=== PATIENT | female | born 1990 | race Two or more races ===

== ENCOUNTER → 2020-08-11 09:52 | Outpatient (BNVA) | payer OTHER, SELFPAY | PROVIDERS: PCP Internal Medicine Nephrology; Visit Provider Physician Assistant | DX: Z76.89 Persons encountering health services in other specified circumstances (principal) ==

== ENCOUNTER 2020-08-22 09:52 | Outpatient (REF) | payer OTHER, SELFPAY | END 2020-08-22 09:53 | disposition home or self-care (01) | LOC: HO.LAB 09:52 | PROVIDERS: Visit Provider Internal Medicine | DX: Z20.828 Contact with and (suspected) exposure to other viral communicable diseases (principal) | CPT/HCPCS: C9803; U0003 ==

== ENCOUNTER → 2020-08-24 08:32 | Outpatient (BNVA) | payer OTHER, SELFPAY | PROVIDERS: Visit Provider Surgery | DX: Z76.89 Persons encountering health services in other specified circumstances (principal) ==

== ENCOUNTER 2020-09-15 07:34 | Outpatient (REF) | payer OTHER, SELFPAY ==
--- NOTE | 2020-09-15 07:52 | XR_ITS ---
EXAMINATION: XR CHEST CLINICAL INFORMATION: Morbid obesity. COMPARISON: None TECHNIQUE: 2 views of the chest were obtained. FINDINGS: No significant abnormality is noted involving the heart, lungs, mediastinum, bony thorax or soft tissues. XR/XR chest 2V IMPRESSION: Unremarkable chest exam.
--- NOTE | 2020-09-15 07:52 | FL_ITS ---
EXAMINATION: FL UPPER GI SERIES CLINICAL INFORMATION: Bariatric service evaluation. E66.01 COMPARISON: None TECHNIQUE: Upper GI series is performed using fluoroscopic evaluation in addition to multiple fluoroscopic spot views. The patient is imaged both upright and prone and using both thick and thin barium sulfate along with effervescent granules. Exam is technically challenging, difficulty breath-holding. Fluoroscopy time: 1.5 minutes DAP: 29.53 Gycm2 Fluoroscopic spot images: 17 FINDINGS: There is scattered motion artifact on the images. There is normal esophageal motility. There is no obstruction, stricture, ulceration, or hernia. No gastroesophageal reflux is demonstrated. The stomach shows no thickened folds or ulcer crater or outlet obstruction. The duodenal bulb is pliable and without ulcer crater or scarring. The post bulbar duodenum the jejunal mucosal pattern are unremarkable. FL/FL upper GI series IMPRESSION: Normal study.
--- NOTE | 2020-09-15 07:52 | US_ITS ---
EXAMINATION: US COMPLETE ABDOMEN WITH LIVER ELASTOGRAPHY CLINICAL INFORMATION: Morbid obesity. COMPARISON: None. TECHNIQUE: Real-time imaging of the abdominal viscera. Noninvasive ultrasound liver fibrosis assessment is performed using Jamal ElastPQ point quantification shear wave elastography (pSWE) with a 5 MHz transducer. Multiple elastography samples are obtained. FINDINGS: PANCREAS: The pancreas is obscured by overlying gas. ABDOMINAL AORTA: The proximal, middle, and distal aortic segments are normal in caliber. INFERIOR VENA CAVA: Visualized portions are normal. LIVER: The liver demonstrates normal size, contour and diffuse increased echogenicity. No focal lesion or intrahepatic biliary duct dilatation. The right lobe measures 18.2 cm in length. The left lobe measures 12.6 cm in length. There is normal hepatopedal flow seen in the portal vein. Shear wave elastography provides a median stiffness of 1.16 m/s (reference: normal median stiffness is 0.81 - 1.22 m/s). The IQR/median stiffness to assess sampling precision is 0.17 (reference: optimal IQR/median stiffness is under 0.3). GALLBLADDER: There are multiple echogenic stones with acoustic shadowing. There is no gallbladder wall thickening or pericholecystic fluid collection. COMMON BILE DUCT: Normal in caliber measuring 0.7 cm in diameter. RIGHT KIDNEY: Normal. No hydronephrosis. No renal calculi or focal parenchymal lesions. The kidney measures 10.8 cm in maximum dimension. LEFT KIDNEY: Normal. No hydronephrosis. No renal calculi or focal parenchymal lesions. The kidney measures 10.6 cm in maximum dimension. SPLEEN: Normal. The spleen measures 11.8 cm in maximum dimension. FREE FLUID: None. US/US abdomen comp w elastography IMPRESSION: 1. Cholelithiasis without wall thickening. 2. Diffusely mild echogenic liver without focal lesion. 3. The rest of the abdominal ultrasound is unremarkable. 4. Elastography: Liver elastography measurements are within normal (METAVIR Stage F0).
--- NOTE | 2020-09-15 09:40 | ECG_ITS ---
Test Reason : SOB Blood Pressure : / mmHG Vent. Rate : 088 BPM Atrial Rate : 088 BPM P-R Int : 136 ms QRS Dur : 078 ms QT Int : 380 ms P-R-T Axes : 037 014 012 degrees QTc Int : 459 ms Normal sinus rhythm Normal ECG No previous ECGs available Referred By: Esequiel Guaman Electronically Signed By:Luis Mireles
[2020-09-15 10:11] LABS: MANUAL DIFF FLAG NO
[2020-09-15 10:19] LABS: Basophils Percent Auto 0.2 % (0-2); Eosinophils Absolute Auto 0.2 X10*3/uL (0.0-0.4); Eosinophils Percent Auto 2.1 % (0-4); Hematocrit 38.6 % (37-47); Hemoglobin 12.3 g/dl (12.0-16.0); Imm Gran Abs Auto 0.02 X10*3/uL (0.00-0.03); Imm Gran Pct Auto 0.2 % (0.0-0.4); Lymphocytes Absolute Auto 2.5 X10*3/uL (1.2-4.9); Lymphocytes Percent Auto 21.9 % (20-40); Mean Corpuscular HGB Conc 31.9 g/dl (31.0-35.0); Mean Corpuscular Hemoglobin 27.9 pg (27.0-33.0); Mean Corpuscular Volume 87.5 fL (80-98); Mean Platelet Volume 10.2 fL (9.4-12.3); Monocytes Absolute Auto 0.8 X10*3/uL (0.1-1.2); Neutrophils Absolute Auto 7.7 X10*3/uL (2.0-8.3); Neutrophils Percent Auto 68.6 % (45-73); Platelet Count 287 X10*3/uL (160-400); Red Blood Count 4.41 X10*6/uL (4.20-5.50); Red Cell Distribution Width 14.1 % (11.0-16.0); White Blood Count 11.2 X10*3/uL (4.8-10.8)
[2020-09-15 10:34] LABS: Estimated Average Glucose 111 mg/dL; Hemoglobin A1c % 5.5 %
[2020-09-15 10:43] LABS: Alanine Aminotransferase 17 U/L (0-31); Albumin Level 4.2 g/dL (3.5-5.0); Alkaline Phosphatase 82 U/L (39-117); Anion Gap 11 (12-20); Aspartate Amino Transferase 17 U/L (5-31); Bilirubin Total 1.3 mg/dL (0.0-1.0); Blood Urea Nitrogen 12 mg/dL (9-16); C Reactive Protein 1.08 mg/dL (< or = 0.50); Calcium 9.3 mg/dL (8.4-10.2); Carbon Dioxide 27 mmol/L (22-29); Chloride 105 mmol/L (96-108); Cholesterol 147 mg/dL; Estimated Glomerular Filt Rate > 60; Glucose Random 108 mg/dL (60-115); HDL Cholesterol 49 mg/dL; LDL Cholesterol Calculated 83 mg/dl; Potassium 4.4 mmol/l (3.3-5.1); Sodium 139 mmol/L (135-145); Triglycerides 78 mg/dL
[2020-09-15 11:06] LABS: Ferritin 29 ng/mL (10-122); TSH reflex Free T4 1.56 mIU/mL (0.32-4.0); Vitamin D 25-OH Total 15.2 ng/mL (>30)
[2020-09-15 11:16] LABS: Folate 10.2 ng/mL (> or = 4.0); Vitamin B12 198 pg/mL (200-900)
[2020-09-16 12:26] LABS: Insulin Level Total 13.1 uIU/mL
[2020-09-16 18:47] LABS: Calcium (PTHI) 9.3 mg/dL (8.6-10.2); PTHI 42 pg/mL (14-64)
[2020-09-18 02:17] LABS: Zinc 69 mcg/dL (60-130)
[2020-09-19 14:27] LABS: Vitamin B1 13 nmol/L (8-30)
[2020-09-22 13:47] LABS: Vitamin A 38 mcg/dL (38-98)
== END 2020-09-15 07:35 | disposition home or self-care (01) ==
LOC: HO.US 07:34
PROVIDERS: Visit Provider Surgery
DX: Z01.818 Encounter for other preprocedural examination (principal); E66.01 Morbid (severe) obesity due to excess calories; K21.9 Gastro-esophageal reflux disease without esophagitis
CPT/HCPCS: 36415; 71046; 74240; 76705; 76981; 80053; 80061; 82306; 82607; 82728; 82746; 83036; 83525; 83970; 84425; 84443; 84590; 84630; 85025; 86140; 93005

== ENCOUNTER 2020-09-16 08:10 | Outpatient (REF) | payer OTHER, SELFPAY ==
[2020-09-17 14:17] LABS: H Pylori Breath Test NOT DETECTED (NOT DETECTED)
== END 2020-09-16 08:11 | disposition home or self-care (01) ==
LOC: HO.LNP 08:10
PROVIDERS: PCP Internal Medicine; Referring Provider Surgery; Visit Provider Dietitian, Registered
DX: E66.01 Morbid (severe) obesity due to excess calories (principal); Z11.0 Encounter for screening for intestinal infectious diseases
CPT/HCPCS: 83013; 99211

== ENCOUNTER → 2020-09-21 08:24 | Outpatient (BNVA) | payer OTHER, SELFPAY | PROVIDERS: PCP Internal Medicine; Visit Provider Surgery | DX: Z76.89 Persons encountering health services in other specified circumstances (principal) ==

== ENCOUNTER 2020-10-11 10:44 | Day surgery (SDC) | payer OTHER, SELFPAY ==
[2020-08-29 14:13] VITALS: BMI 55.9
[2020-10-05 16:34] VITALS: BMI 55.3
--- NOTE | 2020-10-10 11:03 | HO.ANESPROP2 ---
Documented by User: Yaneli Gloria 10/10/20 11:04 HPI - Anesthesia Eval Consult details Narrative: 30yo F for Upper Endoscopy [facility] Past Medical History Medical History Anxiety Back pain Depression Lab test positive for detection of COVID-19 virus Morbid obesity Nexplanon in place Family History Family History Mother Hypertension Osteoporosis Asthma Diabetes Father Diabetes Sister No problems noted. Sister No problems noted. Brother No problems noted. Daughter No problems noted. Daughter No problems noted. Surgical History Surgical History History of sleeve gastrectomy Hx of section Hx of hernia repair Social History Social History Alcohol intake: current Alcohol intake frequency: holidays/special occasions only Smoking Status: Never smoker Use of substances other than those prescribed or required for medical reasons: Yes Substance Use Type: Marijuana Substance Use Frequency: Occasionally Advance Directives: No (unknown) Advance Directives Information Provided: No Advance Directives on File: No ([place]) Recently lost weight without trying: No Meds Allergies Allergy/AdvReac Type Severity Reaction Status Date / Time aspirin Allergy Severe Swelling Verified 10/05/20 16:32 Home Medications Medication Instructions Recorded Confirmed Type acetaminophen 325 mg tablet 325 mg PO QID PRN 08/24/20 08/29/20 History Exam Exam Date and Time: October 10, 2020 1103 Height,Weight and Vital Signs: Height 5 ft 1 in Weight 132.903 kg Assessment and Plan Assessment Anesthesia Assessment: Chart Reviewed Documented by User: Lisbeth Torres 10/11/20 12:28 [facility] Past Medical History Medical History Anxiety Back pain Depression Lab test positive for detection of COVID-19 virus Morbid obesity Nexplanon in place Family History Family History Mother Hypertension Osteoporosis Asthma Diabetes Father Diabetes Sister No problems noted. Sister No problems noted. Brother No problems noted. Daughter No problems noted. Daughter No problems noted. Surgical History Surgical History History of sleeve gastrectomy Hx of section Hx of hernia repair Social History Social History Alcohol intake: current Alcohol intake frequency: holidays/special occasions only Smoking Status: Never smoker Use of substances other than those prescribed or required for medical reasons: Yes Substance Use Type: Marijuana Substance Use Frequency: Occasionally Advance Directives: No (unknown) Advance Directives Information Provided: No Advance Directives on File: No ([place]) Recently lost weight without trying: No Meds Allergies Allergy/AdvReac Type Severity Reaction Status Date / Time aspirin Allergy Severe Swelling Verified 10/05/20 16:32 Home Medications Medication Instructions Recorded Confirmed Type acetaminophen 325 mg tablet 325 mg PO QID PRN 08/24/20 08/29/20 History Exam Airway Mallampati Class: II TM Dist: >3cm Neck ROM: Full Assessment and Plan Final Anesthetic Review NPO: Yes ASA Class: III Final Preanesthetic Review: No Changes in Pt Med Stat and Consent Obtained/Reviewed Patient Risk: Intermediate Procedure Risk: Low Assessment/Block/Sedation in SS: Assess/Block/Sedation-SS Anesthetic Plan Anesthetic Plan: MAC: Disposition: Standard PACU
[2020-10-11 11:54] VITALS: BP 123/87; PULSE 105; RESP 16; TEMP 36.5; O2SAT 98
[2020-10-11 11:58] LABS: UPreg QC Valid YES; Urine Pregnancy NEGATIVE (NEGATIVE)
[2020-10-11] MEDS: Lactated Ringers 1,000 ML 100 ML IVCONT (12:13)
--- NOTE | 2020-10-11 12:43 | P.CONAN_ITS ---
[facility] Past Medical History Medical History Anxiety Back pain Depression Lab test positive for detection of COVID-19 virus Morbid obesity Nexplanon in place Family History Family History Mother Hypertension Osteoporosis Asthma Diabetes Father Diabetes Sister No problems noted. Sister No problems noted. Brother No problems noted. Daughter No problems noted. Daughter No problems noted. Surgical History Surgical History History of sleeve gastrectomy Hx of section Hx of hernia repair Social History Social History Alcohol intake: current Alcohol intake frequency: holidays/special occasions only Smoking Status: Never smoker Use of substances other than those prescribed or required for medical reasons: Yes Substance Use Type: Marijuana Substance Use Frequency: Occasionally Advance Directives: No (unknown) Advance Directives Information Provided: No Advance Directives on File: No ([place]) Recently lost weight without trying: No Meds Allergies Allergy/AdvReac Type Severity Reaction Status Date / Time aspirin Allergy Severe Swelling Verified 10/05/20 16:32 Home Medications Medication Instructions Recorded Confirmed Type acetaminophen 325 mg tablet 325 mg PO QID PRN 08/24/20 08/29/20 History Exam Exam Date and Time: October 11, 2020 1244 Height,Weight and Vital Signs: Height 5 ft 1 in Weight 132.903 kg Last Vital Signs Temp 97.7 F 10/11/20 11:54 Pulse 105 H 10/11/20 11:54 Resp 16 10/11/20 11:54 BP 123/87 10/11/20 11:54 Pulse Ox 98 10/11/20 11:54 Pertinent Lab Results Pertinent Lab Results: Laboratory Tests 10/11/20 11:39 Urine Test NEGATIVE Airway Mallampati Class: II TM Dist: >3cm Neck ROM: Full Assessment and Plan Assessment Anesthesia Assessment: Anesthesia Plan Discussed and Chart Reviewed Final Anesthetic Review NPO: Yes ASA Class: III Final Preanesthetic Review: No Changes in Pt Med Stat, Meds/Allgs Chart Reviewed, Consent Obtained/Reviewed and Anes Risks/Benef Reviewed Patient Risk: Intermediate Procedure Risk: Low Assessment/Block/Sedation in SS: Assess/Block/Sedation-SS Anesthetic Plan Anesthetic Plan: MAC: Disposition: Standard PACU
--- NOTE | 2020-10-11 12:44 | P.HPSUR_ITS ---
Pre-Procedural Eval Section A The patient is an INPATIENT: No The History & Physical has been completed within 30 days and I have reviewed it.: Yes Section B Chief Complaint: reflux Details of Present Illness: GERD Relevant Family History (Specify if Yes): No Relevant Social History: None Present Medications: see Short Stay Collaborative assessment Medical History: No relevant PMH History of Previous Operations: Relevant previous surgery/procedure and date(s) (Sleeve gastrectomy) Allergies: Allergies Allergy/AdvReac Type Severity Reaction Status Date / Time aspirin Allergy Severe Swelling Verified 10/05/20 16:32 Review of Systems Sugical H&P ROS: Negative: Constitution, Cardiovascular, Respiratory, Neurological, Psychiatric, Hem-Onc, Allergic/Immunologic, Gastrointestinal, Kyung tourinary, Musculoskeletal, Integumentary, Endocrine and Eyes/Ears/Nose/Throat Exam Surgical H&P Exam: Normal: HEENT, Normal: Heart, Normal: Lungs, Normal: Extremities, Normal: Abdomen, Normal: Skin and Normal: Neurological Plan Diagnosis/Plan: Unchanged I have reviewed the history and physical and performed a pertinent physical examination on my patient. No changes have occurred unless specified.
--- NOTE | 2020-10-11 12:45 | HO.ANESPROP2 ---
[facility] Past Medical History Medical History Anxiety Back pain Depression Lab test positive for detection of COVID-19 virus Morbid obesity Nexplanon in place Family History Family History Mother Hypertension Osteoporosis Asthma Diabetes Father Diabetes Sister No problems noted. Sister No problems noted. Brother No problems noted. Daughter No problems noted. Daughter No problems noted. Surgical History Surgical History History of sleeve gastrectomy Hx of section Hx of hernia repair Social History Social History Alcohol intake: current Alcohol intake frequency: holidays/special occasions only Smoking Status: Never smoker Use of substances other than those prescribed or required for medical reasons: Yes Substance Use Type: Marijuana Substance Use Frequency: Occasionally Advance Directives: No (unknown) Advance Directives Information Provided: No Advance Directives on File: No ([place]) Recently lost weight without trying: No Meds Allergies Allergy/AdvReac Type Severity Reaction Status Date / Time aspirin Allergy Severe Swelling Verified 10/05/20 16:32 Home Medications Medication Instructions Recorded Confirmed Type acetaminophen 325 mg tablet 325 mg PO QID PRN 08/24/20 08/29/20 History Exam Exam Date and Time: October 11, 2020 1245 Height,Weight and Vital Signs: Height 5 ft 1 in Weight 132.903 kg Last Vital Signs Temp 97.7 F 10/11/20 11:54 Pulse 105 H 10/11/20 11:54 Resp 16 10/11/20 11:54 BP 123/87 10/11/20 11:54 Pulse Ox 98 10/11/20 11:54 Pertinent Lab Results Pertinent Lab Results: Laboratory Tests 10/11/20 11:39 Urine Test NEGATIVE Airway Mallampati Class: II TM Dist: >3cm Neck ROM: Full Assessment and Plan Assessment Anesthesia Assessment: Anesthesia Plan Discussed and Chart Reviewed Final Anesthetic Review NPO: Yes ASA Class: III Final Preanesthetic Review: No Changes in Pt Med Stat, Meds/Allgs Chart Reviewed, Consent Obtained/Reviewed and Anes Risks/Benef Reviewed Patient Risk: Intermediate Procedure Risk: Low Assessment/Block/Sedation in SS: Assess/Block/Sedation-SS Anesthetic Plan Anesthetic Plan: MAC: Disposition: Standard PACU
--- NOTE | 2020-10-11 12:46 | HO.ANESPROP2 ---
[facility] Past Medical History Medical History Anxiety Back pain Depression Lab test positive for detection of COVID-19 virus Morbid obesity Nexplanon in place Family History Family History Mother Hypertension Osteoporosis Asthma Diabetes Father Diabetes Sister No problems noted. Sister No problems noted. Brother No problems noted. Daughter No problems noted. Daughter No problems noted. Surgical History Surgical History History of sleeve gastrectomy Hx of section Hx of hernia repair Social History Social History Alcohol intake: current Alcohol intake frequency: holidays/special occasions only Smoking Status: Never smoker Use of substances other than those prescribed or required for medical reasons: Yes Substance Use Type: Marijuana Substance Use Frequency: Occasionally Advance Directives: No (unknown) Advance Directives Information Provided: No Advance Directives on File: No ([place]) Recently lost weight without trying: No Meds Allergies Allergy/AdvReac Type Severity Reaction Status Date / Time aspirin Allergy Severe Swelling Verified 10/05/20 16:32 Home Medications Medication Instructions Recorded Confirmed Type acetaminophen 325 mg tablet 325 mg PO QID PRN 08/24/20 08/29/20 History Exam Exam Date and Time: October 11, 2020 1246 Height,Weight and Vital Signs: Height 5 ft 1 in Weight 132.903 kg Last Vital Signs Temp 97.7 F 10/11/20 11:54 Pulse 105 H 10/11/20 11:54 Resp 16 10/11/20 11:54 BP 123/87 10/11/20 11:54 Pulse Ox 98 10/11/20 11:54 Pertinent Lab Results Pertinent Lab Results: Laboratory Tests 10/11/20 11:39 Urine Test NEGATIVE Assessment and Plan Assessment Anesthesia Assessment: Anesthesia Plan Discussed and Chart Reviewed Final Anesthetic Review NPO: Yes ASA Class: III Final Preanesthetic Review: No Changes in Pt Med Stat, Meds/Allgs Chart Reviewed, Consent Obtained/Reviewed and Anes Risks/Benef Reviewed Patient Risk: Intermediate Procedure Risk: Low Assessment/Block/Sedation in SS: Assess/Block/Sedation-SS Anesthetic Plan Anesthetic Plan: MAC: Disposition: Standard PACU
--- NOTE | 2020-10-11 13:24 | P.BOP_ITS ---
Brief Operative Note Date of Service: 10/11/20 Pre-op diagnosis: GERD Post-op diagnosis: same (diaphragmatic hernia, partial gastric volvulus) Procedure: PROCEDURE DATE: 09/24/2019 PREOPERATIVE DIAGNOSIS: GERD, s/p sleeve gastrectomy POSTOPERATIVE DIAGNOSIS: Same as above. 1) small hiatal hernia, 2) distal gastritis PROCEDURE: [id number] with biopsies Surgeon: Oni Guaman M.D.. Ph.D. Set Up Mechan[employer] Machine: None Anesthesia: IV sedation Estimated blood loss: Minimal FINDINGS AND PROCEDURE: OPERATIVE INDICATIONS: The patient is a 30 year old female known to me who underwent a laparoscopic sleeve gastrectomy elsewhere. The patient had inadequate weight loss so far. The patient was doing very well but has recently been complaining of GERD. Based on this information I recommended an upper endoscopy to evaluate the patient's symptoms. Risks and complications of the surgery were discussed with the patient in advance particularly the possibility of perforation or bleeding that may require surgical intervention. The patient understood the risks and was in agreement with the plan. PROCEDURE: After informed consent was obtained by the patient, the patient was transferred to the Operating Room and was placed in the supine position. After successful induction of IV sedation, a mouth block was inserted and the patient was placed in the left lateral decubitus position. An upper endoscopy was performed next, the oropharynx and esophagus appeared within the normal limits. There was a small hiatal hernia. The z-line was smooth. Two biopsies were obtained from the distal esohagus 2-3 cm proximal to the GE junction and two additional biopsies from the GE junction. The sleeve was entered and it appeared to be of normal size and even caliber. There was mild gastritis at distal antrum. There was no stricture or ulcer but there was a significant twist at the incisura angularis causing partial gastric volvulus. Biopsies were obtained from the proximal sleeve as well as the distal antrum. No significant bleeding was noted from any of the biopsy sites. The scope was then advanced into the duodenum which appeared to be normal as well. At that point the duodenum and the sleeve were decompressed and the scope was withdrawn from the patient's mouth. The patient extubated and was transferred in stable condition to the Recovery Room for further care. I was present and performed all steps of the procedure. There were no residents to assist with this case. Oni Guaman M.D., Ph.D. Surgeon: Esequiel Guaman MD Anesthesia: MAC Estimated blood loss (mL): 0 IV fluids (mL): 400 Urine output (mL): 0 (No Wilson to record) Pathology: other (1) GEJ x2, distal esophagus x2, proximal sleeve x1, antrum x1) Condition: stable Disposition: PACU
[2020-10-11 13:30] VITALS: BP 100/63; PULSE 95; RESP 24; TEMP 36.4; O2SAT 98
[2020-10-11 13:45] VITALS: BP 124/78; PULSE 88; RESP 20; TEMP 36.4; O2SAT 99
== END 2020-10-11 14:15 ==
LOC: HO.SSS 10:44
PROVIDERS: Nurse Practitioner; PCP Internal Medicine Nephrology; Visit Provider Surgery
PROC: 0DJ08ZZ Inspection of Upper Intestinal Tract, Via Natural or Artificial Opening Endoscopic (ICD-10-PCS; CPT 43235; principal; 2020-10-11 13:10)
DX: K21.00 Gastro-esophageal reflux disease with esophagitis, without bleeding (principal); K44.9 Diaphragmatic hernia without obstruction or gangrene; K56.2 Volvulus; K29.60 Other gastritis without bleeding; Z98.84 Bariatric surgery status
CPT/HCPCS: 43239; 81025; 88305; 88342; J2250

== ENCOUNTER → 2020-10-17 08:17 | Outpatient (BNVA) | payer OTHER, SELFPAY | PROVIDERS: PCP Internal Medicine Nephrology; Visit Provider Surgery ==

== ENCOUNTER → 2020-10-19 08:11 | Outpatient (BNVA) | payer OTHER, SELFPAY | PROVIDERS: PCP Internal Medicine Nephrology; Visit Provider Dietitian, Registered ==

== ENCOUNTER → 2020-11-03 08:08 | Outpatient (BNVA) | payer OTHER, SELFPAY | PROVIDERS: PCP Internal Medicine Nephrology; Visit Provider Dietitian, Registered ==

== ENCOUNTER → 2020-11-11 08:48 | Outpatient (BNVA) | payer OTHER, SELFPAY | PROVIDERS: PCP Internal Medicine Nephrology; Visit Provider Surgery ==

== ENCOUNTER → 2020-12-05 08:11 | Outpatient (BNVA) | payer OTHER, SELFPAY | PROVIDERS: PCP Internal Medicine Nephrology; Visit Provider Surgery ==

== ENCOUNTER → 2020-12-28 08:23 | Outpatient (BNVA) | payer OTHER, SELFPAY | PROVIDERS: PCP Internal Medicine Nephrology; Visit Provider Surgery ==